=== PATIENT | female | born 1960 | race Caucasian/White ===

== ENCOUNTER 2017-02-16 22:09 | Emergency (ER) | payer MEDICAID ==
--- NOTE | 2017-02-17 00:49 | ED Physician Chart ---
ED Chief Complaint/HPI - Patient Information Date Seen:: 02/17/17 Time Seen:: 00:49 Chief Complaint:: Left foot pain History of Present Illness:: 56 yo female had left foot pain and swelling due to fall from bed 4 days ago. The pain, swelling and erythema was located on the lateral dorsal left foot. The patient denied fever or chills. Allergies:: Allergies Allergy/AdvReac Type Severity Reaction Status Date / Time No Known Allergies Allergy Verified 02/16/17 23:07 Vitals:: Vital Signs - 8 hr 02/16/17 22:45 Temp 97.5 F HR 70 RR 18 BP 158/75 O2 Sat % 96 ED Review of Systems - Review of Systems General/Constitutional: No fever Skin: No skin lesions Head: No headache Eyes: No pain ENT: No earache Neck: No neck pain Cardio Vascular: No chest pain Pulmonary: No SOB GI: No nausea Musculoskeletal: Bone or joint pain Psychiatric: No prior psych history ED Past Medical History - Past Medical History Past Medical History: HTN, DM, Asthma/COPD, Dyslipidemia, Other (Miles's palsy) Social History: Non Smoker, No Alcohol, No Drug Use Surgical History: ED Physical Exam - Physical Examination General/Constitutional: Awake Head: Atraumatic Eyes: PERRL Skin: No skin lesions ENMT: Nasal exam nl Neck: No nuchal rigidity Respiratory: No Wheeze/Rhonchi/Rales Cardio Vascular: RRR, No murmur, gallop, rubs, NL S1 S2 GI: No tenderness/rebounding/guarding Other Extremities comments:: tenderness, swelling and erythema at lateral dorsal left foot. Neuro/Psych: No focal deficits ED Labs/Radiology/EKG Results - Radiology Results Results: Left foot X ray: no fracture, calcaneal spur formation ED Assessment - Assessment General Assessment: Left foot cellulitis Dehydration DM II, poorly controlled Assessment/Comments:: Left foot X ray CBC, CMP NS 1L IV bolus Vancomycin IV Zosyn IV D/c home Levaquin 750mg qd x 7 days F/u PCP or return to ER if symptoms worsen F/u PCP for diabetes control ED Septic Shock - . Is Septic Shock (SBP<90, OR Lactate>4 mmol\L) present?: No - <6hrs of presentation: Vital Signs: Vital Signs - 8 hr 02/16/17 22:45 Temp 97.5 F HR 70 RR 18 BP 158/75 O2 Sat % 96 ED Reassessment (Disposition) - Reassessment Reassessment Condition:: Improved - Patient Disposition Discharge/Transfer:: Home ED Discharge Plan - Patient Disposition Admit/Discharge/Transfer: PT DISCHARGED HOME Condition at Disposition: Stable Prescriptions: Levofloxacin [Levaquin] 750 mg PO DAILY #10 tab Instructions: Type 2 Diabetes Mellitus, Adult, Cellulitis Additional Instructions: Follow up with your Primary Care Physician in two days if not improving.
[2017-02-17 01:04] LABS: % EOSINOPHILS 4.8 % (0.0-5.0); % LYMPHOCYTES 27.4 % (20.0-50.0); % MONOCYTES 9.7 % (2.0-10.0); % NEUTROPHILS 57.1 % (40.0-80.0); BASOPHILE ABSOLUTE 0.1 Th/cumm (0-0.2); EOSINOPHILE ABSOLUTE 0.5 Th/cmm (0.1-0.4); HEMATOCRIT 38.6 % (41.0-60); HEMOGLOBIN 12.8 gm/dL (12-16); LYMPHOCYTE ABSOLUTE 2.9 Th/cmm (1.5-3.0); MEAN CELL VOLUME 82.1 fl (81-100); MEAN CORPUSCULAR HEMOGLOBIN 27.1 pg (27.0-31.0); MEAN CORPUSCULAR HGB CONC 33.1 pg (28.0-36.0); MEAN PLATELET VOLUME 8.9 fl; PLATELET COUNT 413 Th/cmm (150-400); RED CELL DISTRIBUTION WIDTH 13.1 % (11.5-20.0); WHITE BLOOD COUNT 10.5 Th/cmm (4.8-10.8)
[2017-02-17 01:18] LABS: ALB/GLOB RATIO 1.3 (1.0-1.8); ALBUMIN 4.1 gm/dL (3.7-5.3); ANION GAP 12.4 (7.0-16.0); BILIRUBIN,TOTAL 0.3 mg/dL (0.3-1.0); CALCIUM SERUM 9.3 mg/dL (8.6-10.3); CARBON DIOXIDE 26.2 mEq/L (21.0-31.0); CREATININE - SERUM 1.8 mg/dL (0.6-1.2); GFR AFRICAN-AMERICAN 37.4 ml/min (>90); GFR NON AFRICAN-AMERICAN 30.9 ml/min; POTASSIUM SERUM 4.6 mEq/L (3.5-5.1); TOTAL PROTEIN,SERUM 7.2 gm/dL (6.0-8.3)
[2017-02-17] MEDS ORDERED: Piperacillin Sodium/Tazobact 3.375 gm Vial IV ONE (01:52)
[2017-02-17] MEDS ORDERED: Sodium Chloride 0.9% 1,000 ML IV ONE (01:57)
--- NOTE | 2017-02-17 09:03 | Diagnostic Imaging Report ---
Left foot (3 views) HISTORY: Pain No definite acute bony abnormalities. No fractures seen at this time. Spur formation noted off the plantar and posterior margins of the calcaneus. Narrowing of all DIP and PIP joint spaces. IMPRESSION: 1. No acute abnormalities 2. Calcaneal spur formation 3. Degenerative joint disease In the presence of recent trauma and persistent symptoms, a repeat radiograph in 5-7 days may be helpful for detection of a subtle or occult fracture.
[2017-02-17 15:44] LABS: A1C % 7.8 % (4.0-6.0)
== END 2017-02-17 04:05 | disposition home or self-care (01) ==
LOC: ER 22:09
DX: L03.116 Cellulitis of left lower limb (principal); E86.0 Dehydration; E11.9 Type 2 diabetes mellitus without complications; I10 Essential (primary) hypertension; J45.909 Unspecified asthma, uncomplicated; J44.9 Chronic obstructive pulmonary disease, unspecified; E78.5 Hyperlipidemia, unspecified
CPT/HCPCS: 99285; 73630; 36415; 85025; 83036; 80053; 96365; 96368; J2543; J3370; J7030